=== PATIENT | male | born 1990 | race Caucasian/White ===

== ENCOUNTER → 2017-08-07 | Outpatient (REF) ==
[~2017-08-07] MED LIST: AMOX-556 PO; AMPH20TA17; CEP500 PO; LOR5/325 PO; PER PO
== END ==
LOC: AUD 09:00
PROVIDERS: ATTEND Family Medicine
DX: Z01.10 Encounter for examination of ears and hearing without abnormal findings (principal)
CPT/HCPCS: 92552

== ENCOUNTER 2017-08-19 13:55 | Emergency (ER) | payer OTHER ==
[2017-08-19 13:57] VITALS: BP 140/84
--- NOTE | 2017-08-19 14:24 | ER Report ---
History and Physical Time Seen By MD: 14:00 Hx. of Stated Complaint: POSSIBLE EXPOSURE STOOL IN EYE FROM A PATIENT. HPI/ROS Was cleaning the EMS equipment, and may have splashed stool in his eye. Unsure of whether or not it actually happened. Normal vision. Source patient with no history of known hepatitis or HIV. Source patient agreed to have blood drawn Remainder of the 14 system rev: Yes Allergies: Coded Allergies: No Known Drug Allergies (Unverified , 08/19/17) Uncoded Allergies: METALS WITH PROLONGED EXPOSURE (Allergy, Intermediate, RASH AND HIVES, ) Home Meds Reported Medications Amphet Asp/Amphet/D-Amphet (Adderall 20 Mg Tablet) 20 Mg Tablet, 20 MG QDAY 05/08/12 Discontinued Reported Medications Amoxicillin/Potassium Clav (AUGMENTIN 500-125 TABLET) 1 Each Tablet, 1 TAB PO BID, #10 TAKE ONE TABLET BY MOUTH EVERY 8 HOURS 12/18/12 Reviewed Nurses Notes: Yes Hx Smoking: Yes Hx Substance Use Disorder: No Hx Alcohol Use: Yes (RARE) Constitutional Vital Sign - Last 24 Hours 08/19/17 13:57 Temp 98.7 Pulse 67 Resp 16 B/P (MAP) 140/84 Pulse Ox 95 O2 Delivery Room Air Physical Exam HEENT: PERRL, no obvious trauma or irritation noted CV: RRR no m/r/g Lungs: cta b/l Medical Decision Making Data Points Laboratory Hematology Test 08/19/17 14:09 Hepatitis B Surface Antigen Negative (NEGATIVE) Hepatitis B Surface Antibody Positive Hepatitis C Antibody Negative (NEGATIVE) HIV (1&2) Antibody Negative (NEGATIVE) Chemistry Test 08/19/17 14:09 Hepatitis B Surface Antigen Negative (NEGATIVE) Hepatitis B Surface Antibody Positive Hepatitis C Antibody Negative (NEGATIVE) HIV (1&2) Antibody Negative (NEGATIVE) ED Course/Re-evaluation ED Course Normal visual acuities, washed eye with eye wash. Labs drawn both from the source patient and the patient himself. Decision to Disposition Date: Aug 19, 2017 Decision to Disposition Time: 14:22 Depart Departure Latest Vital Signs Vital Signs Date Time Temp Pulse Resp B/P (MAP) Pulse Ox O2 Delivery O2 Flow Rate FiO2 08/19/17 13:57 98.7 67 16 140/84 95 Room Air Impression: Primary Impression: Exposure to blood or body fluid Condition: Improved Disposition: HOME OR SELF-CARE Referrals: HAEBERLE,ADÁN MD (PCP) Patient Instructions: Body Substance Exposure (ED) DIAZ NICOLE MD Aug 19, 2017 14:24
== END 2017-08-19 14:30 | disposition home or self-care (01) ==
LOC: ER 14:14
DX: Z77.21 Contact with and (suspected) exposure to potentially hazardous body fluids (principal)
CPT/HCPCS: 36415; 86703; 86706; 86803; 87340; 99282

== ENCOUNTER → 2017-10-09 | Outpatient (CLI) | payer OTHER | LOC: LAB 13:37 | PROVIDERS: ATTEND Emergency Medicine | DX: Z77.21 Contact with and (suspected) exposure to potentially hazardous body fluids (principal) ==

== ENCOUNTER → 2017-11-14 | Outpatient (CLI) | payer OTHER | LOC: LAB 13:56 | PROVIDERS: ATTEND Emergency Medicine | DX: Z77.21 Contact with and (suspected) exposure to potentially hazardous body fluids (principal) | CPT/HCPCS: 36415; 86703 ==

== ENCOUNTER → 2018-03-05 | Outpatient (CLI) | payer OTHER | LOC: LAB 13:54 → EDSTATUS 03-06 07:34 | PROVIDERS: ATTEND Emergency Medicine | DX: Z20.6 Contact with and (suspected) exposure to human immunodeficiency virus [HIV] (principal) | CPT/HCPCS: 36415; 86703; 86803 ==

== ENCOUNTER → 2018-08-27 | Outpatient (REF) | LOC: AUD 08:40 | PROVIDERS: ATTEND Family Medicine | DX: Z01.12 Encounter for hearing conservation and treatment (principal) | CPT/HCPCS: 92552 ==